=== PATIENT | female | born 1950 | race Caucasian/White ===

== ENCOUNTER 2021-03-16 07:29 | Observation (INO) ==
[2021-03-16 07:56] VITALS: BMI 32.9
[2021-03-16] MEDS ORDERED: NORCO 5/325 MG TAB PO ONE (07:56)
--- NOTE | 2021-03-16 08:03 | DR.CP ---
HPI <Chey Sutton - Last Filed: 03/16/21 08:20> Time Seen Time Seen by Provider: 03/16/21 07:49 HPI Comment HPI Comment: 7/10 cp x 2 days; worse with movement and cough; sob and "feels like it's pounding out of my chest"; persistent with some nausea but no vomiting, abd pain, fever, chills; she has cad w/stents and just started gabapentin for neuropathy. PMH <Chey Sutton - Last Filed: 03/16/21 08:20> PMH Past Medical History: Coronary Artery Disease, GERD and Hypertension Past Surgical History: Yes Social History Do you use any recreational Drugs:: No ROS <Chey Sutton - Last Filed: 03/16/21 08:20> Review of Systems Constitutional: No Symptoms Reported Eyes: No Symptoms Reported ENTM: No Symptoms Reported Cardiovascular: Chest Pain Genitourinary: No Symptoms Reported Neurological: No Symptoms Reported Musculoskeletal: No Symptoms Reported Integumentary: No Symptoms Reported Hematologic/Lymphatic: No Symptoms Reported Endocrine: No Symptoms Reported Psychiatric: No Symptoms Reported PE <Chey Sutton - Last Filed: 03/16/21 08:20> Vitals Vitals: Temperature 98.1 F Pulse Rate 68 Respiratory Rate 17 Blood Pressure [Left Arm] 143/65 Blood Pressure 149/69 O2 Sat by Pulse Oximetry 96 General Limitations: No Limitations General Appearance: Alert and In No Apparent Distress Head Head Exam: Normal Inspection Eyes Eye exam: Normal Appearance ENT ENT Exam: Normal Exam Chest Chest Inspection: Normal Inspection, Symmetric Chest Wall Rise and Tenderness (across top of chest lt greater than rt) Respiratory Respiratory Exam: Normal Lung Sounds Bilat Cardiovascular Cardiovascular Exam: Regular Rate and Normal Rhythm Pulse: Normal Edema: Normal Abdominal Exam Abdominal Exam: Normal Inspection, Normal Bowel Sounds and Soft Extremities Extremities Exam: Edema Back Back Exam: Normal Inspection Neurologic Neurological Exam: Alert and Oriented X3 Psychiatric Psychiatric Exam: Normal Affect and Normal Mood Skin Skin Exam: Warm, Dry, Intact and Normal Color <Adelina Jack - Last Filed: 03/16/21 11:19> Vitals Vitals: Temperature 98.1 F Pulse Rate 68 Respiratory Rate 17 Blood Pressure [Left Arm] 143/65 Blood Pressure 149/69 O2 Sat by Pulse Oximetry 96 [facility] <Chey Sutton - Last Filed: 03/16/21 08:20> Differential Diagnosis Differential Diagnosis: Angina, Chest Wall Pain, Costochondritis, Myocardial Infarction and Pleuritis COURSE <Chye Sutton - Last Filed: 03/16/21 08:20> Treatment Treatment: [address] Jack <Adelina Jack - Last Filed: 03/16/21 11:19> Treatment Treatment: Assumed care of this patient at shift change from Dr. Sutton. Re- evaluated patient. Patient states that the "pounding in her chest" is better, but that she still has numbness and tingling in her arm Reevaluation 1st: Unchanged 2nd: Unchanged Consultation Called: 10:37 Call Returned: 11:18 Consultation Comments: Called Dr. Alvarez (patient's PCP). Dr. Alvarez accepts patient for admission for chest pain. Dr. Prince, patient's Cup Machine Operator, will be consulted. ROR <Chey Sutton - Last Filed: 03/16/21 08:20> Labs Reviewed Result Diagrams: 03/16/21 08:30 03/16/21 08:30 Laboratory: WBC 7.5 X10^3/uL (3.6-10.0) 03/16/21 08:30 RBC 4.08 X10^6/uL (3.5-5.4) 03/16/21 08:30 Hgb 12.8 g/dL (12.0-16.0) 03/16/21 08:30 Hct 36.8 % (36.0-47.0) 03/16/21 08:30 MCV 90.1 fL (80.0-100.0) 03/16/21 08:30 MCH 31.3 pg (27.0-34.0) 03/16/21 08:30 MCHC 34.7 g/dL (33.0-35.0) 03/16/21 08:30 RDW 13.5 % (11.6-16.5) 03/16/21 08:30 Plt Count 196 X10^3/uL (150.0-450.0) 03/16/21 08:30 MPV 7.7 fL (7.4-11.0) 03/16/21 08:30 Neut % (Auto) 56.4 % (42.0-75.0) 03/16/21 08:30 Lymph % (Auto) 34.6 % (21.0-51.0) 03/16/21 08:30 [place] % (Auto) 6.1 % (0.0-13.0) 03/16/21 08:30 Eos % (Auto) 2.4 % (0.9-2.9) 03/16/21 08:30 Baso % (Auto) 0.5 % (0.2-1.0) 03/16/21 08:30 Neut # (Auto) 4.2 x10^3/uL (2.2-4.8) 03/16/21 08:30 Lymph # (Auto) 2.6 X10^3/uL (1.3-2.9) 03/16/21 08:30 [place] # (Auto) 0.5 x10^3/uL (0.3-0.8) 03/16/21 08:30 Eos # (Auto) 0.2 x10^3/uL (0.0-0.2) 03/16/21 08:30 Baso # (Auto) 0.0 X10^3/uL (0.0-0.1) 03/16/21 08:30 Absolute Nucleated RBC 0.1 /100WBC 03/16/21 08:30 Sodium 140 mmol/L (136-145) 03/16/21 08:30 Corrected Sodium 141 mmol/L (136-145) 03/16/21 08:30 Potassium 3.8 mmol/L (3.5-5.1) 03/16/21 08:30 Chloride 101 mmol/L (98-107) 03/16/21 08:30 Carbon Dioxide 29.0 mmol/L (21-32) 03/16/21 08:30 BUN 9 mg/dL (7-18) 03/16/21 08:30 Creatinine 0.95 mg/dL (0.55-1.02) 03/16/21 08:30 Est GFR (MDRD) Af Amer > 60 (>60) 03/16/21 08:30 Est GFR (MDRD) Non-Af > 60 (>60) 03/16/21 08:30 Glucose 124 mg/dL (65-99) H 03/16/21 08:30 Calcium 9.0 mg/dL (8.5-10.1) 03/16/21 08:30 Corrected Calcium TNP 03/16/21 08:30 Total Bilirubin 0.30 mg/dL (0.2-1.0) 03/16/21 08:30 AST 16 Units/L (15-37) 03/16/21 08:30 ALT 18 Units/L (12-78) 03/16/21 08:30 Alkaline Phosphatase 61 Units/L (46-116) 03/16/21 08:30 Creatine Kinase 127 Units/L (26-192) 03/16/21 08:30 CK-MB (CK-2) < 1.0 ng/mL (0-4.0) 03/16/21 08:30 CK/CKMB % Calc 0.8 % (<4) 03/16/21 08:30 Troponin I < 0.02 ng/mL (0-1.5) 03/16/21 08:30 Total Protein 7.2 g/dL (6.4-8.2) 03/16/21 08:30 Albumin 3.9 g/dL (3.4-5.0) 03/16/21 08:30 Globulin 3.3 g/dL (2.5-4.5) 03/16/21 08:30 Albumin/Globulin Ratio 1.2 Ratio (1.1-2.1) 03/16/21 08:30 SARS-CoV-2 (PCR) Negative (NEGATIVE) 03/16/21 09:35 Influenza Type A (PCR) Negative (NEGATIVE) 03/16/21 09:35 Influenza Type B (PCR) Negative (NEGATIVE) 03/16/21 09:35 RSV (PCR) Negative (NEGATIVE) 03/16/21 09:35 S. pyogenes (TEM-PCR) Not detected (NOT DETECT) 03/16/21 09:35 <Adelina Jack - Last Filed: 03/16/21 11:19> Labs Reviewed Laboratory Results Reviewed?: Yes Laboratory: WBC 7.5 X10^3/uL (3.6-10.0) 03/16/21 08:30 RBC 4.08 X10^6/uL (3.5-5.4) 03/16/21 08:30 Hgb 12.8 g/dL (12.0-16.0) 03/16/21 08:30 Hct 36.8 % (36.0-47.0) 03/16/21 08:30 MCV 90.1 fL (80.0-100.0) 03/16/21 08:30 MCH 31.3 pg (27.0-34.0) 03/16/21 08:30 MCHC 34.7 g/dL (33.0-35.0) 03/16/21 08:30 RDW 13.5 % (11.6-16.5) 03/16/21 08:30 Plt Count 196 X10^3/uL (150.0-450.0) 03/16/21 08:30 MPV 7.7 fL (7.4-11.0) 03/16/21 08:30 Neut % (Auto) 56.4 % (42.0-75.0) 03/16/21 08:30 Lymph % (Auto) 34.6 % (21.0-51.0) 03/16/21 08:30 [place] % (Auto) 6.1 % (0.0-13.0) 03/16/21 08:30 Eos % (Auto) 2.4 % (0.9-2.9) 03/16/21 08:30 Baso % (Auto) 0.5 % (0.2-1.0) 03/16/21 08:30 Neut # (Auto) 4.2 x10^3/uL (2.2-4.8) 03/16/21 08:30 Lymph # (Auto) 2.6 X10^3/uL (1.3-2.9) 03/16/21 08:30 [place] # (Auto) 0.5 x10^3/uL (0.3-0.8) 03/16/21 08:30 Eos # (Auto) 0.2 x10^3/uL (0.0-0.2) 03/16/21 08:30 Baso # (Auto) 0.0 X10^3/uL (0.0-0.1) 03/16/21 08:30 Absolute Nucleated RBC 0.1 /100WBC 03/16/21 08:30 Sodium 140 mmol/L (136-145) 03/16/21 08:30 Corrected Sodium 141 mmol/L (136-145) 03/16/21 08:30 Potassium 3.8 mmol/L (3.5-5.1) 03/16/21 08:30 Chloride 101 mmol/L (98-107) 03/16/21 08:30 Carbon Dioxide 29.0 mmol/L (21-32) 03/16/21 08:30 BUN 9 mg/dL (7-18) 03/16/21 08:30 Creatinine 0.95 mg/dL (0.55-1.02) 03/16/21 08:30 Est GFR (MDRD) Af Amer > 60 (>60) 03/16/21 08:30 Est GFR (MDRD) Non-Af > 60 (>60) 03/16/21 08:30 Glucose 124 mg/dL (65-99) H 03/16/21 08:30 Calcium 9.0 mg/dL (8.5-10.1) 03/16/21 08:30 Corrected Calcium TNP 03/16/21 08:30 Total Bilirubin 0.30 mg/dL (0.2-1.0) 03/16/21 08:30 AST 16 Units/L (15-37) 03/16/21 08:30 ALT 18 Units/L (12-78) 03/16/21 08:30 Alkaline Phosphatase 61 Units/L (46-116) 03/16/21 08:30 Creatine Kinase 127 Units/L (26-192) 03/16/21 08:30 CK-MB (CK-2) < 1.0 ng/mL (0-4.0) 03/16/21 08:30 CK/CKMB % Calc 0.8 % (<4) 03/16/21 08:30 Troponin I < 0.02 ng/mL (0-1.5) 03/16/21 08:30 Total Protein 7.2 g/dL (6.4-8.2) 03/16/21 08:30 Albumin 3.9 g/dL (3.4-5.0) 03/16/21 08:30 Globulin 3.3 g/dL (2.5-4.5) 03/16/21 08:30 Albumin/Globulin Ratio 1.2 Ratio (1.1-2.1) 03/16/21 08:30 SARS-CoV-2 (PCR) Negative (NEGATIVE) 03/16/21 09:35 Influenza Type A (PCR) Negative (NEGATIVE) 03/16/21 09:35 Influenza Type B (PCR) Negative (NEGATIVE) 03/16/21 09:35 RSV (PCR) Negative (NEGATIVE) 03/16/21 09:35 S. pyogenes (TEM-PCR) Not detected (NOT DETECT) 03/16/21 09:35 XRAY X-ray Results: HISTORY PT REPORTS ONSET OF CHEST PAIN X2 DAYS STUDY CHEST, 1 VIEW COMPARISON None FINDINGS The trachea is midline. There is mild cardiomegaly. The lungs are clear. There is a large body habitus. No evidence of pulmonary edema. IMPRESSION No acute cardiopulmonary disease. Mild cardiomegaly. Electronically signed by: Clarisa Rodríguez (Mar 16, 2021 08:18:33) Opioid <Chey Sutton - Last Filed: 03/16/21 08:20> Opioid Risk Tool Total: 0 Total Score Risk Category: Low Risk Copyright: [facility] predicting aberrant behaviors <Adelina Jack - Last Filed: 03/16/21 11:19> Opioid Risk Tool Total: 0 Total Score Risk Category: Low Risk <Chey Sutton - Last Filed: 03/16/21 08:20> Diagnosis Discharge Problem: Chest pain in adult, Acute costochondritis Instructions Forms: Precautions for COVID19 Patient Portal Social Distancing
[2021-03-16] MEDS ORDERED: TORADOL TAB PO ONE ×2 (08:04→08:09)
[2021-03-16] MEDS ORDERED: NORCO 5/325 MG TAB ONE (08:09)
--- NOTE | 2021-03-16 08:20 | RAD ---
HISTORYPT REPORTS ONSET OF CHEST PAIN X2 DAYSSTUDYCHEST, 1 VIEWCOMPARISONNoneFINDINGSThe trachea is midline. There is mild cardiomegaly. The lungs are clear. There is a large body habitus. No evidence of pulmonary edema.IMPRESSIONNo acute cardiopulmonary disease. Mild cardiomegaly.Electronically signed by: Clarisa Rodríguez (Mar 16, 2021 08:18:33)
[2021-03-16 08:39] LABS: BASOPHILS % (AUTO) 0.5 % (0.2-1.0); EOSINOPHILS # (AUTO) 0.2 x10^3/uL (0.0-0.2); EOSINOPHILS % (AUTO) 2.4 % (0.9-2.9); HEMATOCRIT 36.8 % (36.0-47.0); HEMOGLOBIN 12.8 g/dL (12.0-16.0); LYMPHOCYTES # (AUTO) 2.6 X10^3/uL (1.3-2.9); LYMPHOCYTES % (AUTO) 34.6 % (21.0-51.0); MEAN CORPUSCULAR HEMOGLOBIN 31.3 pg (27.0-34.0); MEAN CORPUSCULAR HGB CONC 34.7 g/dL (33.0-35.0); MEAN CORPUSCULAR VOLUME 90.1 fL (80.0-100.0); MEAN PLATELET VOLUME 7.7 fL (7.4-11.0); MONOCYTES # (AUTO) 0.5 x10^3/uL (0.3-0.8); MONOCYTES % (AUTO) 6.1 % (0.0-13.0); NEUTROPHILS # (AUTO) 4.2 x10^3/uL (2.2-4.8); NEUTROPHILS % (AUTO) 56.4 % (42.0-75.0); PLATELET COUNT 196 X10^3/uL (150.0-450.0); RED BLOOD COUNT 4.08 X10^6/uL (3.5-5.4); RED CELL DISTRIBUTION WIDTH 13.5 % (11.6-16.5); WHITE BLOOD COUNT 7.5 X10^3/uL (3.6-10.0)
[2021-03-16 08:58] LABS: ALANINE AMINOTRANSFERASE 18 Units/L (12-78); ALBUMIN 3.9 g/dL (3.4-5.0); ALKALINE PHOSPHATASE 61 Units/L (46-116); ASPARTATE AMINO TRANSFERASE 16 Units/L (15-37); BLOOD UREA NITROGEN 9 mg/dL (7-18); CHLORIDE 101 mmol/L (98-107); CKMB % 0.8 % (<4); COR NA(FOR HYPERGLY) 141 mmol/L (136-145); CREATINE KINASE 127 Units/L (26-192); CREATINE KINASE MB < 1.0 ng/mL (0-4.0); CREATININE 0.95 mg/dL (0.55-1.02); SODIUM 140 mmol/L (136-145); TOTAL PROTEIN 7.2 g/dL (6.4-8.2); TROPONIN I < 0.02 ng/mL (0-1.5); eGFR NON BLACK RACES > 60 (>60)
[2021-03-16 10:22] LABS: STREP A BY PCR NOT DETECTED (NOT DETECT)
[2021-03-16] MEDS ORDERED: MORPHINE SULFATE INJ 2 MG INJ IVP PRN (11:34)
[2021-03-16] MEDS ORDERED: NITROSTAT SL PRN (11:34)
[2021-03-16] MEDS ORDERED: NS 1000 ML 1,000 ML IV SCH (12:00)
[2021-03-16] MEDS ORDERED: B COMPLEX WITH VITAMIN C PO SCH (12:34)
[2021-03-16] MEDS ORDERED: COQ10 200 MG PO SCH (12:34)
[2021-03-16] MEDS ORDERED: TYLENOL 325 MG TAB PO PRN (15:19)
[2021-03-16] MEDS ORDERED: TYLENOL 325 MG TAB PO ONE (15:22)
[2021-03-16 16:13] LABS: CKMB % 0.9 % (<4); CREATINE KINASE 107 Units/L (26-192); CREATINE KINASE MB < 1.0 ng/mL (0-4.0); TROPONIN I < 0.02 ng/mL (0-1.5)
[2021-03-16] MEDS: ZETIA TAB 10 MG PO SCH (17:18)
[2021-03-16] MEDS: HYDROCHLOROTHIAZIDE 25 MG TAB PO SCH (17:18)
[2021-03-16] MEDS ORDERED: ZOCOR TAB 10 MG PO SCH (21:00)
[2021-03-16 21:23] LABS: CKMB % 0.7 % (<4); CREATINE KINASE 137 Units/L (26-192); CREATINE KINASE MB < 1.0 ng/mL (0-4.0); TROPONIN I < 0.02 ng/mL (0-1.5)
[2021-03-16] MEDS: COREG TAB 12.5 MG PO SCH (21:30)
[2021-03-16] MEDS ORDERED: NORCO 5/325 MG TAB PO PRN (21:46)
[2021-03-17 05:27] LABS: BASOPHILS % (AUTO) 0.3 % (0.2-1.0); EOSINOPHILS # (AUTO) 0.2 x10^3/uL (0.0-0.2); EOSINOPHILS % (AUTO) 1.7 % (0.9-2.9); HEMATOCRIT 34.7 % (36.0-47.0); HEMOGLOBIN 12.2 g/dL (12.0-16.0); LYMPHOCYTES # (AUTO) 2.3 X10^3/uL (1.3-2.9); LYMPHOCYTES % (AUTO) 21.4 % (21.0-51.0); MEAN CORPUSCULAR HEMOGLOBIN 31.6 pg (27.0-34.0); MEAN CORPUSCULAR HGB CONC 35.1 g/dL (33.0-35.0); MONOCYTES # (AUTO) 0.8 x10^3/uL (0.3-0.8); MONOCYTES % (AUTO) 7.7 % (0.0-13.0); NEUTROPHILS # (AUTO) 7.5 x10^3/uL (2.2-4.8); NEUTROPHILS % (AUTO) 68.9 % (42.0-75.0); PLATELET COUNT 200 X10^3/uL (150.0-450.0); RED BLOOD COUNT 3.86 X10^6/uL (3.5-5.4); RED CELL DISTRIBUTION WIDTH 13.5 % (11.6-16.5); WHITE BLOOD COUNT 10.8 X10^3/uL (3.6-10.0)
[2021-03-17 05:51] LABS: ALANINE AMINOTRANSFERASE 15 Units/L (12-78); ALBUMIN 3.4 g/dL (3.4-5.0); ALKALINE PHOSPHATASE 56 Units/L (46-116); ASPARTATE AMINO TRANSFERASE 15 Units/L (15-37); BLOOD UREA NITROGEN 13 mg/dL (7-18); CALCIUM 8.7 mg/dL (8.5-10.1); CARBON DIOXIDE 25.6 mmol/L (21-32); CHLORIDE 101 mmol/L (98-107); COR NA(FOR HYPERGLY) 138 mmol/L (136-145); CREATININE 0.97 mg/dL (0.55-1.02); SODIUM 138 mmol/L (136-145); TOTAL PROTEIN 6.4 g/dL (6.4-8.2); eGFR NON BLACK RACES > 60 (>60)
[2021-03-17] MEDS ORDERED: COZAAR PO SCH (09:00)
[2021-03-17] MEDS ORDERED: ASPIRIN PO SCH (09:00)
[2021-03-17] MEDS ORDERED: LOVAZA PO SCH (09:00)
[2021-03-17] MEDS ORDERED: NORVASC TAB 5 MG PO SCH (09:00)
[2021-03-17] MEDS: HYDROCHLOROTHIAZIDE 25 MG TAB PO SCH (09:57)
[2021-03-17] MEDS: COREG TAB 12.5 MG PO SCH (09:58)
[2021-03-17] MEDS: ZETIA TAB 10 MG PO SCH (09:58)
--- NOTE | 2021-03-17 14:03 | DR.H&P ---
H&P - History & Physical for Day of: H&P Date: 03/16/21 - Chief Complaint Chief Complaint: CHEST PAIN - History of Present Illness History of Present Illness: Pt is a 70 WF ER admission with co cp x 2 days; worse with movement and cough; sob and "feels like it's pounding out of my chest"; persistent with some nausea but no vomiting, abd pain, fever, chills; she has cad w/stents and just started gabapentin for neuropathy. Pt has pmh of htn, hyperlipidemia and CAD. Pt admitted for treatment of acute illness. - Past Medical History Past Medical History: Coronary Artery Disease, Hypertension, GERD - Past Surgical History Surgical History: Angioplasty/Stents, Cholecystectomy, Hysterectomy - Family History Family Medical History: Diabetes Mellitus, [place], Hypertension - Social History Does patient currently use any type of tobacco product: No Have you used tobacco products in the last 12 months: No Type of Tobacco Use: None Does any household member use tobacco: No Alcohol Use: None Drug Use: None - Medications Home Medications: No Known Drug Allergies Allergy (Verified 03/16/21 07:41) CONTINUE taking the following medications amlodipine 5 mg PO DAILY 03/16/21 [History] gabapentin 100 mg PO HS 03/16/21 [History] icosapent ethyl 1 g PO TID 03/16/21 [History] losartan 50 mg PO DAILY 03/16/21 [History] nitroglycerin 0.4 mg SUBLINGUAL Q5M PRN 03/16/21 [History] omega-3 fatty acids [[place] 3] 350 mg PO ONCE 03/16/21 [History] simvastatin 10 mg PO DAILY 03/16/21 [History] - Review of Systems Constitutional: Weakness Eyes: No Symptoms Reported ENT: No Symptoms Reported Respiratory: Shortness of Breath Cardiovascular: Chest Pain Gastrointestinal: Nausea Genitourinary: No Symptoms Reported Musculoskeletal: No Symptoms Reported Skin: No Symptoms Reported Neurological: No Symptoms Reported - Physical Exam Vital Signs: Temperature 98 F Pulse Rate [Brachial] 76 Pulse Rate [Apical] 67 Pulse Rate 68 Respiratory Rate 18 Blood Pressure [Left Arm] 129/59 Blood Pressure 149/69 O2 Sat by Pulse Oximetry 93 Oriented: Normal Eyes: Normal Ear: Normal Nose: Normal Throat: Normal Respiratory: Clear Throughout Cardiovascular: Normal. negative: Edema : Normal Auscultation: Bowel Sounds: Normal Palpation: Normal Tenderness: Normal Skin: Normal Musculoskeletal: Normal Psychiatric: Normal Mood Description: Calm Speech Pattern: Clear, Appropriate - Assessment/Plan (1) Chest pain in adult Status: Acute Plan: ADMIT, SERIAL CE AND EKG. VERIFY HOME MEDICATION, CXR ON ADMISSION. BP CONTROL, STRICT I&OS, NTG PRN (2) CAD (coronary artery disease) Status: Acute (3) Essential hypertension Status: Chronic - Allergies Allergies/Adverse Reactions: Allergies Allergy/AdvReac Type Severity Reaction Status Date / Time No Known Drug Allergies Allergy Verified 03/16/21 07:41
[2021-03-17 14:44] VITALS: BP 144/69
[2021-04-15] MEDS ORDERED: CYANOCOBALAMIN IM SCH (09:00)
[2021-04-15] MEDS ORDERED: [UNRECOGNIZED DRUG - OTHER] IM SCH (09:00)
== END 2021-03-17 15:40 | disposition short-term general hospital (02) ==
LOC: ER 07:40 → OBS 07:40 → MED/SURG 11:34
PROVIDERS: ADMIT Internal Medicine; ATTEND Internal Medicine
DX: I25.10 Atherosclerotic heart disease of native coronary artery without angina pectoris; K21.9 Gastro-esophageal reflux disease without esophagitis; E78.2 Mixed hyperlipidemia; M94.0 Chondrocostal junction syndrome [Tietze]; R07.89 Other chest pain; I10 Essential (primary) hypertension; Z20.822 Contact with and (suspected) exposure to COVID-19